=== PATIENT | female | born 1945 | race Two or more races ===

== ENCOUNTER 2017-07-23 09:54 | Outpatient (CLI) | payer OTHER ==
[~2017-07-23 09:54] MED LIST: BUCALSEP SPRAY30 ML; RELAGESIC TABLE1 TAB; TAMIFLU45 MG; TRISPEC DMX PED30 ML; VITACEL TABLET1 TAB; [UNRECOGNIZED DRUG - REMARK]
== END 2017-07-23 10:10 | disposition home or self-care (01) ==
LOC: MAMO-SONO 09:54
DX: Z12.31 Encounter for screening mammogram for malignant neoplasm of breast (principal); Z87.898 Personal history of other specified conditions; N60.11 Diffuse cystic mastopathy of right breast; N60.12 Diffuse cystic mastopathy of left breast
CPT/HCPCS: 76641; G0202

== ENCOUNTER 2017-08-31 11:18 | Outpatient (CLI) | payer OTHER | END 2017-08-31 11:24 | disposition home or self-care (01) | LOC: RAD 11:18 | DX: M25.562 Pain in left knee (principal); I10 Essential (primary) hypertension; E55.9 Vitamin D deficiency, unspecified; E78.89 Other lipoprotein metabolism disorders ==

== ENCOUNTER 2017-09-11 09:23 | Outpatient (CLI) | payer OTHER | END 2017-09-11 09:34 | disposition home or self-care (01) | LOC: MRI 09:23 | DX: M12.262 Villonodular synovitis (pigmented), left knee (principal); M17.12 Unilateral primary osteoarthritis, left knee | CPT/HCPCS: 73721 ==

== ENCOUNTER 2017-09-11 09:26 | Outpatient (CLI) | payer OTHER | END 2017-09-11 09:32 | disposition home or self-care (01) | LOC: RAD 09:26 | DX: M25.512 Pain in left shoulder (principal) ==

== ENCOUNTER 2017-12-15 10:13 | Outpatient (CLI) | payer OTHER ==
[2018-01-11] MEDS ORDERED: TUSSI PRES-B L120 M1 PO (11:32)
[2018-01-11] MEDS ORDERED: ZITHROMAX TRI-500 MG PO (11:32)
== END 2017-12-15 15:59 | disposition home or self-care (01) ==
LOC: TOM 10:13
DX: D12.3 Benign neoplasm of transverse colon (principal)

== ENCOUNTER → 2018-01-11 | Emergency (ER) | payer OTHER ==
[~2018-01-11] VITALS: Ht 170.2 cm; Wt 72.6 kg
[~2018-01-11] MED LIST changes: +TUSSI PRES-B L120 M1 PO; +ZITHROMAX TRI-500 MG PO
== END | disposition home or self-care (01) ==
LOC: ER 08:08
DX: J06.9 Acute upper respiratory infection, unspecified (principal); H10.13 Acute atopic conjunctivitis, bilateral

== ENCOUNTER 2018-03-10 08:55 | Outpatient (CLI) | payer OTHER | END 2018-03-10 09:05 | disposition home or self-care (01) | LOC: LAB 08:55 | DX: E55.9 Vitamin D deficiency, unspecified (principal); E78.89 Other lipoprotein metabolism disorders; I11.9 Hypertensive heart disease without heart failure; Z12.11 Encounter for screening for malignant neoplasm of colon ==

== ENCOUNTER 2018-06-18 08:38 | Outpatient (CLI) | payer OTHER | END 2018-06-18 08:48 | disposition home or self-care (01) | LOC: LAB 08:38 | DX: E55.9 Vitamin D deficiency, unspecified (principal); E78.89 Other lipoprotein metabolism disorders; I11.9 Hypertensive heart disease without heart failure ==

== ENCOUNTER 2018-07-21 12:28 | Outpatient (CLI) | payer OTHER | END 2018-07-21 12:31 | disposition home or self-care (01) | LOC: MAMO-SONO 12:28 | DX: Z12.31 Encounter for screening mammogram for malignant neoplasm of breast (principal); Z87.898 Personal history of other specified conditions; N60.11 Diffuse cystic mastopathy of right breast; N60.12 Diffuse cystic mastopathy of left breast ==

== ENCOUNTER → 2018-08-23 | Outpatient (CLI) | payer OTHER | END | disposition home or self-care (01) | LOC: NUCLEAR 07-29 11:00 | DX: M81.0 Age-related osteoporosis without current pathological fracture (principal) ==

== ENCOUNTER 2018-09-06 10:20 | Outpatient (CLI) | payer OTHER | END 2018-09-06 10:30 | disposition home or self-care (01) | LOC: SONOGRAMA 10:20 | DX: E55.9 Vitamin D deficiency, unspecified (principal); I11.9 Hypertensive heart disease without heart failure; R10.13 Epigastric pain; Z68.25 Body mass index [BMI] 25.0-25.9, adult; E78.89 Other lipoprotein metabolism disorders ==

== ENCOUNTER 2019-08-23 09:27 | Outpatient (CLI) | payer OTHER | END 2019-08-23 09:34 | disposition home or self-care (01) | LOC: MAMO-SONO 09:27 | DX: N64.4 Mastodynia (principal); Z12.31 Encounter for screening mammogram for malignant neoplasm of breast; Z87.898 Personal history of other specified conditions; N63.10 Unspecified lump in the right breast, unspecified quadrant; N63.20 Unspecified lump in the left breast, unspecified quadrant ==

== ENCOUNTER 2020-10-08 13:16 | Emergency (ER) | payer OTHER ==
[~2020-10-08] VITALS: Ht 170.2 cm; Wt 65.8 kg
[2020-10-08] MEDS ORDERED: COZAAR50 MG (14:18)
[2020-10-08] MEDS ORDERED: PROTONIX40 MG (14:18)
[2020-10-08] MEDS ORDERED: CHILDREN'S ASPI81 MG (14:18)
[2020-10-08] MEDS ORDERED: TOPROL XL25 M1 (14:19)
== END 2020-10-08 19:46 | disposition home or self-care (01) ==
LOC: ER 13:16 → EDBD 14:08 → ER 19:46
DX: M54.2 Cervicalgia (principal); R51.9 Headache, unspecified

== ENCOUNTER 2020-11-06 10:21 | Outpatient (CLI) | payer OTHER ==
[~2020-11-06 10:21] MED LIST changes: +CHILDREN'S ASPI81 MG; +COZAAR50 MG; +PROTONIX40 MG; +TOPROL XL25 M1
== END 2020-11-06 10:31 | disposition home or self-care (01) ==
LOC: MAMO-SONO 10:21
PROVIDERS: ATTEND Obstetrics & Gynecology
DX: N63.0 Unspecified lump in unspecified breast (principal); N64.89 Other specified disorders of breast; N64.4 Mastodynia

== ENCOUNTER 2020-11-06 14:41 | Outpatient (CLI) | payer OTHER | END 2020-11-06 14:47 | disposition home or self-care (01) | LOC: NUCLEAR 14:41 | PROVIDERS: ATTEND Obstetrics & Gynecology | DX: M81.0 Age-related osteoporosis without current pathological fracture (principal) ==

== ENCOUNTER 2021-03-08 07:25 | Outpatient (CLI) | payer OTHER | END 2021-03-08 07:30 | disposition home or self-care (01) | LOC: SONOGRAMA 07:25 → MAMO-SONO 07:30 → SONOGRAMA 07:30 | PROVIDERS: ATTEND Obstetrics & Gynecology | DX: N60.11 Diffuse cystic mastopathy of right breast (principal); N60.12 Diffuse cystic mastopathy of left breast; N64.4 Mastodynia ==

== ENCOUNTER → 2021-07-18 07:56 | Outpatient (CLI) | payer OTHER | END | disposition home or self-care (01) | LOC: LAB 07:56 | PROVIDERS: ATTEND Internal Medicine | DX: E78.9 Disorder of lipoprotein metabolism, unspecified (principal); K21.9 Gastro-esophageal reflux disease without esophagitis; E78.5 Hyperlipidemia, unspecified ==

== ENCOUNTER 2021-09-20 07:38 | Outpatient (CLI) | payer OTHER | END 2021-09-20 07:46 | disposition home or self-care (01) | LOC: TOM 07:38 | PROVIDERS: ATTEND Internal Medicine Gastroenterology | DX: K64.0 First degree hemorrhoids (principal); K56.600 Partial intestinal obstruction, unspecified as to cause; K62.5 Hemorrhage of anus and rectum ==

== ENCOUNTER 2021-11-12 12:21 | Emergency (ER) | payer OTHER ==
[~2021-11-12] VITALS: Ht 170.2 cm; Wt 70.3 kg
== END 2021-11-12 18:14 | disposition home or self-care (01) ==
LOC: ER 12:21
DX: R51.9 Headache, unspecified (principal); Z20.822 Contact with and (suspected) exposure to COVID-19; I10 Essential (primary) hypertension

== ENCOUNTER 2021-11-28 09:54 | Outpatient (CLI) | payer OTHER | END 2021-11-28 10:11 | disposition home or self-care (01) | LOC: MAMO-SONO 09:54 | PROVIDERS: ATTEND Obstetrics & Gynecology | DX: N63.0 Unspecified lump in unspecified breast (principal); N64.4 Mastodynia ==

== ENCOUNTER 2022-01-09 12:50 | Emergency (ER) | payer OTHER ==
[~2022-01-09] VITALS: Ht 170.2 cm; Wt 72.1 kg
== END 2022-01-09 17:45 | disposition home or self-care (01) ==
LOC: ER 12:50
DX: I10 Essential (primary) hypertension (principal); Z20.822 Contact with and (suspected) exposure to COVID-19

== ENCOUNTER → 2022-07-14 | Outpatient (CLI) | payer OTHER | END | disposition home or self-care (01) | LOC: SONOGRAMA 09:44 | PROVIDERS: ATTEND Internal Medicine | DX: K21.9 Gastro-esophageal reflux disease without esophagitis (principal); E78.9 Disorder of lipoprotein metabolism, unspecified; E78.5 Hyperlipidemia, unspecified; E46 Unspecified protein-calorie malnutrition ==

== ENCOUNTER 2022-09-05 07:59 | Outpatient (CLI) | payer OTHER | END 2022-09-05 08:06 | disposition home or self-care (01) | LOC: MRI 07:59 | PROVIDERS: ATTEND Internal Medicine | DX: G25.0 Essential tremor (principal); R07.89 Other chest pain; E55.9 Vitamin D deficiency, unspecified; I11.9 Hypertensive heart disease without heart failure; Z13.820 Encounter for screening for osteoporosis; Z13.31 Encounter for screening for depression; E78.2 Mixed hyperlipidemia; E78.5 Hyperlipidemia, unspecified; K21.9 Gastro-esophageal reflux disease without esophagitis; E78.9 Disorder of lipoprotein metabolism, unspecified | CPT/HCPCS: 70551 ==

== ENCOUNTER 2022-11-20 12:59 | Outpatient (CLI) | payer OTHER | END 2022-11-20 13:01 | disposition home or self-care (01) | LOC: NUCLEAR 12:59 | PROVIDERS: ATTEND Obstetrics & Gynecology | DX: M81.0 Age-related osteoporosis without current pathological fracture (principal) ==

== ENCOUNTER 2022-11-26 08:22 | Outpatient (CLI) | payer OTHER | END 2022-11-26 08:31 | disposition home or self-care (01) | LOC: MAMO-SONO 08:22 | PROVIDERS: ATTEND Obstetrics & Gynecology | DX: N63.0 Unspecified lump in unspecified breast (principal); N64.4 Mastodynia ==

== ENCOUNTER 2024-06-13 09:44 | Outpatient (CLI) | payer OTHER | END 2024-06-13 09:45 | disposition home or self-care (01) | LOC: SONOGRAMA 09:44 | PROVIDERS: ATTEND Internal Medicine | DX: Z12.31 Encounter for screening mammogram for malignant neoplasm of breast (principal); E78.9 Disorder of lipoprotein metabolism, unspecified; K21.9 Gastro-esophageal reflux disease without esophagitis; E78.5 Hyperlipidemia, unspecified; E78.2 Mixed hyperlipidemia; I10 Essential (primary) hypertension; E46 Unspecified protein-calorie malnutrition; G25.0 Essential tremor; E55.9 Vitamin D deficiency, unspecified; Z13.820 Encounter for screening for osteoporosis; I11.9 Hypertensive heart disease without heart failure; R07.89 Other chest pain ==

== ENCOUNTER 2024-12-20 09:32 | Outpatient (CLI) | payer OTHER | END 2024-12-20 09:33 | disposition home or self-care (01) | LOC: NUCLEAR 09:32 → EDBD 13:15 | PROVIDERS: ATTEND Internal Medicine | DX: Z13.820 Encounter for screening for osteoporosis (principal); M81.0 Age-related osteoporosis without current pathological fracture ==

== ENCOUNTER 2025-01-20 20:11 | Emergency (ER) | payer OTHER ==
[~2025-01-20] VITALS: Ht 170.2 cm; Wt 72.6 kg
[2025-01-21 00:08] LABS: BASO % 0.3 % (0.1-1.2); EOS # 0.01 (0.04-0.54); EOS % 0.1 % (0.7-7.0); HEMATOCRIT 34.3 % (34.1-44.9); HEMOGLOBIN 11.3 g/dL (11.2-15.7); LYMPH # 0.73 (1.18-3.74); LYMPH % 9.2 % (19.3-53.1); MEAN CORPUSCULAR HEMOGLOBIN 27.2 pg (25.6-32.2); MONO # 1.24 (0.24-0.82); NEUT # 5.92 (1.56-6.13); NEUT % 74.5 % (34.0-71.1); PLATELET COUNT 226 K/uL (163-369); RED BLOOD COUNT 4.15 M/uL (3.93-5.22); RED CELL DISTRIBUTION WIDTH 13.2 % (11.6-14.4)
[2025-01-21 00:21] LABS: CALCIUM 9.5 mg/dL (8.5-10.1); CREATININE SERUM 1.15 mg/dL (0.55-1.02); GFR 45.75; POTASSIUM 4.16 mEq/L (3.5-5.1)
[2025-01-21 00:22] LABS: MONO % 15.6 % (4.7-12.5)
[2025-01-21 00:23] LABS: COVID-19 AG NEGATIVE (NEGATIVE)
[2025-01-21 00:32] LABS: INFLUENZA A AG POSITIVE (NEGATIVE); INFLUENZA B AG NEGATIVE (NEGATIVE)
== END 2025-01-21 01:14 | disposition home or self-care (01) ==
LOC: ER 20:11
DX: J10.1 Influenza due to other identified influenza virus with other respiratory manifestations (principal); I10 Essential (primary) hypertension

== ENCOUNTER 2025-01-21 14:53 | Emergency (ER) | payer OTHER ==
[~2025-01-21] VITALS: Ht 170.2 cm; Wt 77.1 kg
[2025-01-21 17:22] LABS: BASO % 0.3 % (0.1-1.2); HEMATOCRIT 32.1 % (34.1-44.9); HEMOGLOBIN 10.7 g/dL (11.2-15.7); LYMPH # 0.83 (1.18-3.74); LYMPH % 11.1 % (19.3-53.1); MEAN CORPUSCULAR HEMOGLOBIN 27.2 pg (25.6-32.2); MONO # 0.93 (0.24-0.82); NEUT # 5.69 (1.56-6.13); NEUT % 75.8 % (34.0-71.1); PLATELET COUNT 191 K/uL (163-369); RED BLOOD COUNT 3.94 M/uL (3.93-5.22); RED CELL DISTRIBUTION WIDTH 13.2 % (11.6-14.4)
[2025-01-21 17:26] LABS: MONO % 12.4 % (4.7-12.5)
[2025-01-21 17:54] LABS: ALBUMIN 3.4 gm/dL (3.4-5.0); BILIRUBIN TOTAL 0.48 mg/dL (0.3-1.2); CALCIUM 8.7 mg/dL (8.5-10.1); CREATININE SERUM 1.01 mg/dL (0.55-1.02); GFR 53.15; GLOBULINA 4.3 G/DL (2.4-3.5); POTASSIUM 3.57 mEq/L (3.5-5.1); TOTAL PROTEIN 7.7 gm/dL (6.4-8.2)
== END 2025-01-21 21:11 | disposition home or self-care (01) ==
LOC: ER 14:53
PROVIDERS: Emergency Medicine
DX: J10.1 Influenza due to other identified influenza virus with other respiratory manifestations (principal); I10 Essential (primary) hypertension

== ENCOUNTER 2025-05-08 11:50 | Outpatient (CLI) | payer OTHER | END 2025-05-08 11:56 | disposition home or self-care (01) | LOC: MAMO-SONO 11:50 | PROVIDERS: ATTEND Obstetrics & Gynecology | DX: N64.4 Mastodynia (principal); N60.11 Diffuse cystic mastopathy of right breast; N63.10 Unspecified lump in the right breast, unspecified quadrant; Z12.31 Encounter for screening mammogram for malignant neoplasm of breast ==